=== PATIENT | female | born 1995 | race Caucasian/White ===

== ENCOUNTER 2017-04-21 07:31 | Emergency (ER) | payer OTHER ==
[~2017-04-21] VITALS: Ht 154.9 cm; Wt 68.0 kg
[~2017-04-21 07:31] MED LIST: ACIPHEX PO
[2017-04-21 07:38] VITALS: BP_SYST 135
[2017-04-21] MEDS ORDERED: ACETAMINOPHEN 500 MG TABLET PO ONE (08:00)
[2017-04-21] MEDS ORDERED: cefTRIAXone 1 GM in LIDOCAINE 1%, 20 ML MDV 2.1 ML IM ONE (08:00)
[2017-04-21 09:05] VITALS: BP_SYST 121
== END 2017-04-21 09:05 | disposition home or self-care (01) ==
LOC: SED 07:31
DX: J02.8 Acute pharyngitis due to other specified organisms (principal); B97.89 Other viral agents as the cause of diseases classified elsewhere; B96.89 Other specified bacterial agents as the cause of diseases classified elsewhere; M54.5 Low back pain; K21.9 Gastro-esophageal reflux disease without esophagitis; Z90.49 Acquired absence of other specified parts of digestive tract
CPT/HCPCS: 81025; 96372; 99283; J0696; J2001